=== PATIENT | male | born 1945 | race Caucasian/White ===

== ENCOUNTER 2017-03-03 10:33 | Inpatient (IN) | payer MEDICARE ==
[2017-03-03] MEDS ORDERED: NS 0.9% 1000 ML* 1,000 ML IV SCH (11:15)
--- NOTE | 2017-03-03 11:48 | RAD ---
HISTORY: Altered mental status COMPARISONS: None TECHNIQUE: Multiple contiguous axial CT scans were obtained of the head without intravenous contrast. FINDINGS: HEMORRHAGE/INFARCT: There is no hemorrhage or acute infarct. MASSES/SHIFT: There is no mass or shift. EXTRA-AXIAL SPACES: There are no extra-axial fluid collections. SULCI AND VENTRICLES: The sulci and ventricles are normal in size and position for the patient's stated age. CEREBRUM: There are no focal parenchymal abnormalities. BRAINSTEM: There are no focal parenchymal abnormalities. CEREBELLUM: There are no focal parenchymal abnormalities. VESSELS: The vessels are grossly normal. PARANASAL SINUSES: The paranasal sinuses are clear. ORBITS: The orbits are unremarkable. BONES AND SOFT TISSUE: No bone or soft tissue abnormalities are noted. OTHER: None IMPRESSION: NO ACUTE INTRACRANIAL PATHOLOGY.
--- NOTE | 2017-03-03 11:49 | RAD ---
HISTORY: Altered mental status COMPARISONS: August 12, 2005 VIEWS: 1: frontal portable view of the chest at 11:24 AM FINDINGS: LINES AND TUBES: None. CARDIOMEDIASTINAL SILHOUETTE: The cardiomediastinal silhouette is normal for portable technique. PLEURA: The costophrenic angles are sharp. No pleural abnormalities are noted. LUNG PARENCHYMA: The lungs are clear. ABDOMEN: The upper abdomen is clear. There is no subphrenic gas. BONES AND SOFT TISSUES: The patient is status post anterior cervical fusion IMPRESSION: NO ACTIVE CARDIOPULMONARY DISEASE.
[2017-03-03] MEDS ORDERED: Thiamine IV 100 MG, Folic Acid IV* 1 MG, Multiple Vitamin IV ADULT* 10 ML in NS 0.9% 10... IV ONE (12:15)
[2017-03-03 12:19] LABS: Comments Flag Yes; Hematocrit 36 % (42-52); Hemoglobin 12.3 g/dl (14.0-18.0); Mean Corpuscular HGB Conc 35 g/dl (31-36); Mean Corpuscular Hemoglobin 37 pg (27-31); Mean Platelet Volume 9 um3 (7.4-10.4); Red Blood Count 3.34 10^6/ul (4.0-5.4); Red Cell Distribution Width 21 % (10.5-15); White Blood Count 8.2 10^3/ul (3.5-10.8)
[2017-03-03 12:20] LABS: Add Diff/Slide Review? Slide Review Added
[2017-03-03 12:21] LABS: Urine Bilirubin 2+ (Negative); Urine Glucose 1+(50 mg/dL) (Negative); Urine Nitrite Negative (Negative)
[2017-03-03 12:33] LABS: ALT 56 U/L (7-52); AST 183 U/L (13-39); Albumin 2.2 g/dL (3.2-5.2); Alkaline Phosphatase 141 U/L (34-104); Anion Gap 14 mmol/L (2-11); Blood Urea Nitrogen 16 mg/dL (6-24); C Reactive Protein 13.62 mg/L (< 5.00); CO2 Carbon Dioxide 17 mmol/L (22-32); Calcium 7.9 mg/dL (8.6-10.3); Chloride 104 mmol/L (101-111); Creatine Kinase 550 U/L (10-223); EGFR African American 61.6 (>60); EGFR Non-African American 47.9 (>60); Globulin 3.5 g/dL (2-4); Glucose 66 mg/dL (70-100); Lipase 90 U/L (11.0-82.0); Potassium 2.8 mmol/L (3.5-5.0); Sodium 135 mmol/L (133-145); Total Protein 5.7 g/dL (6.4-8.9)
[2017-03-03 12:40] LABS: Add Path Review? YES; Target Cells 2+
[2017-03-03 12:49] LABS: Acetaminophen < 15 mcg/mL; Alcohol < 10 mg/dL (<10); Salicylate < 2.50 mg/dL (<30)
[2017-03-03 12:52] LABS: Troponin I 0.07 ng/mL (<0.04)
[2017-03-03 13:05] LABS: TSH (Thyroid Stimulating Horm) 1.12 mcIU/mL (0.34-5.60)
[2017-03-03 13:09] LABS: Mean Corpuscular Volume 106 fL (80-94)
[2017-03-03] MEDS ORDERED: Thiamine IV* 100 MG, Folic Acid IV* 1 MG, Multiple Vitamin IV ADULT* 10 ML in NS 0.9% 1... IV ONE (13:32)
[2017-03-03] MEDS ORDERED: MULTIPLE VITAMIN IV ONE ×5 (13:38)
[2017-03-03] MEDS ORDERED: [UNRECOGNIZED DRUG - OTHER] IV ONE ×5 (13:38)
[2017-03-03] MEDS ORDERED: THIAMINE IV ONE ×5 (13:38)
[2017-03-03] MEDS ORDERED: FOLIC ACID IV ONE ×5 (13:38)
[2017-03-03 13:56] LABS: Benzodiazepine Urine Screen None Detected (None Detect)
[2017-03-03] MEDS ORDERED: cefTRIAXone VIAL(*) 1,000 MG in NS 0.9% 50 ML* 50 ML IVPB SCH (14:00)
[2017-03-03 14:04] LABS: PCO2 Arterial 22 mmHg (35-45)
[2017-03-03 14:20] LABS: Magnesium 1.7 mg/dL (1.9-2.7)
--- NOTE | 2017-03-03 14:23 | HP ---
H&P (Free Text) History and Physical: Admission - Critical Care HPI: 71y M pmhx of PUD, Alcohol abuse, History of Cirrhosis as per family; comes in to ER for 1 days of lethargy, according to family it has been more than a day he may be more confused. Today less responsive. They noticed more yellowing of skin for weeks now. They deny any fever/chills/cough/chest pain/ shortness of breath. No abd distension. No sick contacts. They say he stopped drinking weeks back when he didnt feel right anymore. They did not notice any diarrhea/dark stools/blood in stools. Appetite was okay as per them days back. In ER, he was arousable to tactile stimuli only, holding his airway, on NC. BP 140-150s, HR 80s. Given IVF bolus by EMS. Family at bedside giving history. ROS: unobtainable due to mental status PMHx: h/o duodenal ulcer with GI bleed in 2001, Gout, Cirrhosis, ?alcohol abuse PSHx: appendectomy, neck surgery 2005, tonsillectomy Family History: unknown Social History: Alcohol- active, stopped weeks back; Smoking former smoker,; Drug use- deny by family. Allergies: Allergies Allergy/AdvReac Type Severity Reaction Status Date / Time Penicillins Allergy Unknown Verified 07/16/14 19:13 Reaction Details Home Medications: Allopurinol TAB* [Zyloprim 100 MG TAB*] 100 mg PO DAILY 11/26/13 [History Confirmed 03/03/17] Pantoprazole TAB (NF) [Protonix TAB (NF)] 40 mg PO DAILY 11/26/13 [History Confirmed 03/03/17] Multiple Vitamins W/ Minerals [Preservision Areds 2 + Mu] 1 cap PO DAILY [History Confirmed 03/03/17] Tele: NSR Vitals: Vital Signs Temp 97.5 F 03/03/17 14:00 Pulse 103 03/03/17 14:00 Resp 18 03/03/17 14:00 BP 167/61 03/03/17 13:30 Pulse Ox 97 03/03/17 14:00 O2/Vent: NC 2-3 L, sat 100% Infusions: NS Current Medications: Sodium Chloride (Ns 0.9% 1000 Ml*) 1,000 mls @ 150 mls/hr IV PER RATE ELSA Thiamine HCl 100 mg/ Folic Acid 1 mg/ Multivitamins 10 ml / Potassium Chloride 60 meq/Sodium Chloride 1,041.2 mls @ 100 mls/hr IV ONCE ONE Stop: 03/03/17 23:56 Sodium Chloride (Ns 0.9% 1000 Ml*) 1,000 mls @ 100 mls/hr IV PER RATE ELSA Aztreonam 1 gm/ Sodium (Chloride) 50 mls @ 200 mls/hr IVPB ONCE ONE Stop: 03/03/17 14:39 Aztreonam 0.5 gm/ Sodium (Chloride) 50 mls @ 200 mls/hr IVPB Q12H ELSA Vancomycin HCl 1,000 mg/ (Sodium Chloride) 250 mls @ 166.667 mls/hr IVPB ONCE ONE Stop: 03/03/17 15:58 Lactulose (Lactulose*) 30 ml NG TUBE Q6H ELSA Pantoprazole Sodium (Protonix Iv*) 40 mg IV DAILY ELSA Phytonadione (Vitamin K Oral Solution*) 10 mg PO DAILY ELSA Stop: 03/05/17 09:01 Rifaximin (Xifaxan*) 550 mg PO BID ELSA Physical Exam: General: unarousable, not much response to tactile/verbal/painful stimuli Head: normocephalic, atraumatic HEENT: no pallor, ++ icterus, dry mucous membranes Neck: soft, supple, no jvd, no stridor CVS: normal rate, normal rhythm, no murmur Resp: bilateral air entry, no rhales, no wheeze, no rhonchi, no acc muscle use Abdomen: soft, minimal tenderness on deep palpation, nondistended, bowel sounds present Ext: pulses+, warm, no edema Skin: intact, no breakdown, no dryness Neuro: not responsive to painful/tactile/verbal stimuli, pupils bilaterall reactive to light, spontaneous repsirations, able to resist eye opening. Labs: Laboratory Results - last 24 hr 03/03/17 03/03/17 03/03/17 11:42 11:54 11:54 WBC RBC Hgb Hct MCV MCH MCHC RDW Plt Count MPV Neut % (Auto) Lymph % (Auto) Routt % (Auto) Eos % (Auto) Baso % (Auto) Absolute Neuts (auto) Absolute Lymphs (auto) Absolute Monos (auto) Absolute Eos (auto) Absolute Basos (auto) Absolute Nucleated RBC Nucleated RBC % Normal RBC Morphology Target Cells INR (Anticoag Therapy) 4.54 H APTT 84.3 H Fibrinogen 79 L D-Dimer, Quantitative 569 H ABG pH ABG pCO2 ABG pO2 ABG HCO3 ABG O2 Saturation ABG Base Excess Sodium 135 Potassium 2.8 L Chloride 104 Carbon Dioxide 17 L Anion Gap 14 H BUN 16 Creatinine 1.46 H Est GFR ( Amer) 61.6 Est GFR (Non-Af Amer) 47.9 BUN/Creatinine Ratio 11.0 Glucose 66 L Lactic Acid Calcium 7.9 L Magnesium 1.7 L Total Bilirubin 25.70 H* AST 183 H ALT 56 H Alkaline Phosphatase 141 H Ammonia Total Creatine Kinase 550 H CK-MB (CK-2) 9.2 H Troponin I 0.07 H* C-Reactive Protein 13.62 H B-Natriuretic Peptide Total Protein 5.7 L Albumin 2.2 L Globulin 3.5 Albumin/Globulin Ratio 0.6 L Lipase 90 H TSH 1.12 Urine Color Minal Urine Appearance Cloudy Urine pH 6.0 Ur Specific Caspian 1.013 Urine Protein Negative Urine Ketones Trace H Urine Blood Negative Urine Nitrate Negative Urine Bilirubin 2+ Urine Urobilinogen Positive H Ur Leukocyte Esterase Negative Urine Glucose 1+(50 mg/dl) H Urine Ascorbic Acid * H Salicylates < 2.50 Urine Opiates Screen Acetaminophen < 15 Ur Barbiturates Screen Ur Phencyclidine Scrn Ur Amphetamines Screen U Benzodiazepines Scrn Urine Cocaine Screen U Cannabinoids Screen Serum Alcohol < 10 03/03/17 03/03/17 03/03/17 11:54 11:54 11:54 WBC 8.2 RBC 3.34 L Hgb 12.3 L Hct 36 L MCV 106 H MCH 37 H MCHC 35 RDW 21 H Plt Count 57 L MPV 9 Neut % (Auto) 74.4 Lymph % (Auto) 9.2 L Routt % (Auto) 15.8 H Eos % (Auto) 0.4 Baso % (Auto) 0.2 Absolute Neuts (auto) 6.1 Absolute Lymphs (auto) 0.8 L Absolute Monos (auto) 1.3 H Absolute Eos (auto) 0 Absolute Basos (auto) 0 Absolute Nucleated RBC 0.01 Nucleated RBC % 0.1 Normal RBC Morphology Not Reportable Target Cells 2+ INR (Anticoag Therapy) APTT Fibrinogen D-Dimer, Quantitative ABG pH ABG pCO2 ABG pO2 ABG HCO3 ABG O2 Saturation ABG Base Excess Sodium Potassium Chloride Carbon Dioxide Anion Gap BUN Creatinine Est GFR ( Amer) Est GFR (Non-Af Amer) BUN/Creatinine Ratio Glucose Lactic Acid 4.9 H* Calcium Magnesium Total Bilirubin AST ALT Alkaline Phosphatase Ammonia Total Creatine Kinase CK-MB (CK-2) Troponin I C-Reactive Protein B-Natriuretic Peptide 86 Total Protein Albumin Globulin Albumin/Globulin Ratio Lipase TSH Urine Color Urine Appearance Urine pH Ur Specific Caspian Urine Protein Urine Ketones Urine Blood Urine Nitrate Urine Bilirubin Urine Urobilinogen Ur Leukocyte Esterase Urine Glucose Urine Ascorbic Acid Salicylates Urine Opiates Screen Acetaminophen Ur Barbiturates Screen Ur Phencyclidine Scrn Ur Amphetamines Screen U Benzodiazepines Scrn Urine Cocaine Screen U Cannabinoids Screen Serum Alcohol 03/03/17 03/03/17 03/03/17 12:54 13:02 13:50 WBC RBC Hgb Hct MCV MCH MCHC RDW Plt Count MPV Neut % (Auto) Lymph % (Auto) Routt % (Auto) Eos % (Auto) Baso % (Auto) Absolute Neuts (auto) Absolute Lymphs (auto) Absolute Monos (auto) Absolute Eos (auto) Absolute Basos (auto) Absolute Nucleated RBC Nucleated RBC % Normal RBC Morphology Target Cells INR (Anticoag Therapy) APTT Fibrinogen D-Dimer, Quantitative ABG pH 7.53 H ABG pCO2 22 L ABG pO2 102 H ABG HCO3 22.8 ABG O2 Saturation 99.8 H ABG Base Excess -2.7 L Sodium Potassium Chloride Carbon Dioxide Anion Gap BUN Creatinine Est GFR ( Amer) Est GFR (Non-Af Amer) BUN/Creatinine Ratio Glucose Lactic Acid Calcium Magnesium Total Bilirubin AST ALT Alkaline Phosphatase Ammonia 172 H Total Creatine Kinase CK-MB (CK-2) Troponin I C-Reactive Protein B-Natriuretic Peptide Total Protein Albumin Globulin Albumin/Globulin Ratio Lipase TSH Urine Color Urine Appearance Urine pH Ur Specific Caspian Urine Protein Urine Ketones Urine Blood Urine Nitrate Urine Bilirubin Urine Urobilinogen Ur Leukocyte Esterase Urine Glucose Urine Ascorbic Acid Salicylates Urine Opiates Screen None detected Acetaminophen Ur Barbiturates Screen None detected Ur Phencyclidine Scrn None detected Ur Amphetamines Screen None detected U Benzodiazepines Scrn None detected Urine Cocaine Screen None detected U Cannabinoids Screen None detected Serum Alcohol Imaging: CT brain no acute findings CXR no acute infiltrate/congestion. Assessment: 71y M pmhx of PUD, Alcohol abuse, History of Cirrhosis as per family ; comes in to ER for 1 days of lethargy, according to family it has been more than a day he may be more confused. Today less responsive. They noticed more yellowing of skin for weeks now. Comes in unresponsive. -Hepatic Encepehalopathy -Acute Decomepensated Cirrhosis -Coagulopathy 2/2 to liver dysfunction -Renal insufficiency -Thrombocytopenia -Lactic Acidosis Plan: Neuro- unresponsive, almost in Coma state. Elevated ammonia level, mild renal insufficiency, elevated bilirubin levels to 25 may all be causing this progressive decline. CT head neg for acute process, no cerebral edema noted. Will start lactulose q6h via ngt and rifaxamin po. Neurochecks q1h. CVS- hemodyn stable. Noted LA elevated. No clear sepsis identified. Has no abd distension, need to eval for ascites and r/o sbp if any. Obtain blood cultures. Empiric aztreonam/vanco. LA likely elevated from poor hepatic clearance, pending r/o of underlying sepsis. Resp- unreponsive but ventilating. ABG obtained, alklalotic. Oxygenation okay for now. Discussed with family that any further decline may require intubation to protect the airway. Obtain end-tidal monitoring q4h for now. Keep HOB elevated 30deg. ID- wbc normal. Though hypothermic. Obtain blood culture. Ct abd now, eval for ascites also. Empiric aztreonam/vanco sbp coverage (pcn allergic). LA elevated by may be sepsis vs hepatic clearance. Cxr clear of infiltrate. GI- acute decompensated cirrhosis. Elvated bili and ammonia may be contributing to encephalopathy. Lactulose and rifaxamine. Empiric abx coverage. Need to r/o infectious etiology but none at this time. Replete K IV now. IVF hydration. Has some renal insufficiency, may be pre-renal, hydrate with NS infusion now. Watch for any developing HRS, if remains oliguric in coming 24 hours, will start albumin infusions 1mg/kg daily. No hypotension at this time. No evidence of GI bleeding. Coagulopathy at INR 4, start Vit K 10mg PO daily, will give IV x1 dose now. Mild bruising noted only. Calculated MELD-Na score 39 givign a mortality risk of 65%. Discussed with family this is a sever state of cirrhosis and decompensation. Evaluate mental status in coming 24 hours. Will have to obtain goals of care. GI eval. Due to elevated MELD score, will discuss with GI about referral to transplant center. Renal- renal insuff, suspect Acute. IV hydration, NS infusion 125cc/hour. Monitor for oliguria and further JAMIE. Cannot rule out HRS yet. Albumin infusion considered tomorrow. Insert ruiz. Urinalysis without clear wbc/bacteria. Panculture. Heme- hg stable. Thrombocytopenia. Plt 57k, no overt bleeding. Cont to monitor for now. Endo- insulin fingertsticks as needed. Musculsk- none Wounds- none Nutrition- NPO for now. DVT prophylaxis: no chem; compression boots GI prophylaxis: protonix iv Central Line: no Arterial Line: no Ruiz Cathetor: no Disposition: ICU for acute decompensated liver cirrhosis and hepatic encephalopathy Code Status: Full code Total Critical Care time is 60 minutes, excluding procedures/teaching Jerry Marie MD Fire Watcher (Electronically Signed)
[2017-03-03] MEDS ORDERED: Aztreonam (*) 1 GM in NS 0.9% 50 ML* 50 ML IVPB ONE (14:25)
[2017-03-03] MEDS ORDERED: Vancomycin(*) 1,000 MG in NS 0.9% 250 ML* 250 ML IVPB ONE (14:29)
--- NOTE | 2017-03-03 14:37 | RAD ---
CLINICAL HISTORY: Cirrhosis, encephalopathy COMPARISON: September 24, 2010 TECHNIQUE: Multiple contiguous axial CT scans were obtained of the abdomen and pelvis, without intravenous contrast enhancement. Coronal and sagittal multiplanar reformations are submitted for review. Oral contrast was not administered. FINDINGS: The study is limited by the lack of intravenous contrast. This limits evaluation of the solid organs and vasculature. LUNG BASES: There are trace bilateral pleural effusions LIVER: The liver is small with a micronodular contour. BILE DUCTS: There is no intrahepatic or extrahepatic biliary dilatation. GALLBLADDER: The gallbladder is incompletely distended. There is gallbladder wall thickening. PANCREAS: The pancreas is normal, without mass or ductal dilatation. SPLEEN: Normal in size and appearance. UPPER GI TRACT: Evaluation of the gastrointestinal tract is limited by incomplete gastric distention. A gastric tube is noted in the stomach. SMALL BOWEL AND MESENTERY: The small bowel is normal in contour, course, and caliber. There is no obstruction or dilatation. COLON: The colon is normal in contour, course, caliber. There is no pericolonic inflammatory change. ADRENALS: Normal bilaterally. KIDNEYS: The kidneys are normal in shape, size, contour, and axis. There is no hydronephrosis or nephrolithiasis. BLADDER: The bladder is collapsed around a Talavera catheter. PELVIC ORGANS: The prostate gland is normal. The seminal vesicles are symmetric. AORTA: There is calcific atherosclerotic disease of the abdominal aorta and its branches, without aneurysmal dilatation IVC: Unremarkable LYMPH NODES: There is no lymphadenopathy by size criteria. ABDOMINAL WALL: There is no evidence for abdominal wall hernia. BONES AND SOFT TISSUES: There are mild diffuse degenerative changes. OTHER: There is a moderate amount of ascites. IMPRESSION: 1. CIRRHOTIC LIVER. 2. ASCITES. 3. TRACE BILATERAL PLEURAL EFFUSIONS. 4. GALLBLADDER WALL EDEMA WHICH MAY BE REACTIVE FROM HEPATIC INFLAMMATION, HYPERPROTEINEMIA, OR MAY REFLECT A PRIMARY INFLAMMATORY OR INFECTIOUS PROCESS OF THE GALLBLADDER. 5. ATHEROSCLEROSIS
--- NOTE | 2017-03-03 14:39 | ED ---
Kathy Cano Alfonso, scribed for Zia Cedillo MD on 03/03/17 at 1058 . Complex/Multi-Sys Presentation - HPI Summary HPI Summary: LEVEL 5 CAVAET DUE TO AMS. This patient is a 71 year old [facility] worse since a few days ago. Per EMS he was last seen ambulatory yesterday. The patient rates the pain 0 /10 in severity. Symptoms alleviated by nothing. EMS reports urinary incontinency. - History Of Current Complaint Time Seen by Provider: 03/03/17 10:42 Hx Obtained From: EMS Hx From Patient Unobtainable Due To: Altered Mental Status Onset/Duration: Gradual Onset, Lasting Days, Still Present Timing: Constant Alleviating Factor(s): nothing Associated Signs And Symptoms: Positive: Other - urinary incontinency. - Allergies/Home Medications Allergies/Adverse Reactions: Allergies Allergy/AdvReac Type Severity Reaction Status Date / Time Penicillins Allergy Unknown Verified 07/16/14 19:13 Reaction Details Home Medications: Home Medications Multiple Vitamins W/ Minerals [Preservision Areds 2 + Mu] 1 cap PO DAILY [History Confirmed 03/03/17] PMH/Surg Hx/FS Hx/Imm Hx Opthamlomology History: Denies: Hx Legally Blind EENT History: Denies: Hx Deafness - Family History Known Family History: Positive: Unknown - LEVEL 5 CAVAET - Social History Alcohol Use: None Substance Use Type: Reports: None Smoking Status (MU): Former Smoker Review of Systems Negative: Fever Positive: incontinence Neurological: Other - AMS All Other Systems Reviewed And Are Negative: No Physical Exam - Summary Physical Exam Summary: General: well-appearing, no pain distress Skin: warm, jaundice, dry Head: normal Eyes: EOMI, CHIQUI, Sclera icterus ENT: normal Neck: supple, nontender Respiratory: CTA, breath sounds present Cardiovascular: RRR Abdomen: soft, nontender Bowel: present Musculoskeletal: normal, strength/ROM intact Neurological: sensory/motor intact, See GCS Psychological: affect/mood appropriate Triage Information Reviewed: Yes Vital Signs On Initial Exam: Initial Vitals Temp Pulse Resp BP Pulse Ox 96.0 F 102 19 185/59 100 03/03/17 10:50 03/03/17 10:50 03/03/17 10:50 03/03/17 10:50 03/03/17 10:50 Vital Signs Reviewed: Yes Completion Of Physical Exam Limited Due To: Level 5 - [place] Coma Scale Best Eye Response: 2 - To Pain Best Motor Response: 4 - Withdraws Best Verbal Response: 4 - Confused Glascow Coma Scale Comments: 02/06 Diagnostics - Vital Signs Vital Signs Temp Pulse Resp BP Pulse Ox 03/03/17 13:15 97.2 F 87 18 99 03/03/17 13:00 97.2 F 88 17 99 03/03/17 12:45 97.0 F 80 14 99 03/03/17 12:30 96.8 F 87 16 158/53 100 03/03/17 12:15 96.8 F 70 13 100 03/03/17 12:00 96.6 F 76 13 154/50 100 03/03/17 11:45 96.4 F 77 13 100 03/03/17 11:37 157/99 03/03/17 11:36 96.3 F 89 15 100 03/03/17 11:30 96.1 F 86 16 134/106 100 03/03/17 11:24 142/80 03/03/17 11:15 109 18 100 03/03/17 11:00 110 17 185/59 100 03/03/17 10:50 96.0 F 102 19 185/59 100 - Laboratory Lab Results: Lab Results 03/03/17 03/03/17 03/03/17 Range/Units 11:42 11:54 11:54 WBC (3.5-10.8) 10^3/ul RBC (4.0-5.4) 10^6/ul Hgb (14.0-18.0) g/dl Hct (42-52) % MCV (80-94) fL MCH (27-31) pg MCHC (31-36) g/dl RDW (10.5-15) % Plt Count (150-450) 10^3/ul MPV (7.4-10.4) um3 Neut % (Auto) (38-83) % Lymph % (Auto) (25-47) % [place] % (Auto) (1-9) % Eos % (Auto) (0-6) % Baso % (Auto) (0-2) % Absolute Neuts (auto) (1.5-7.7) 10^3/ul Absolute Lymphs (auto) (1.0-4.8) 10^3/ul Absolute Monos (auto) (0-0.8) 10^3/ul Absolute Eos (auto) (0-0.6) 10^3/ul Absolute Basos (auto) (0-0.2) 10^3/ul Absolute Nucleated RBC 10^3/ul Nucleated RBC % Normal RBC Morphology Target Cells Hem Pathologist Commnt INR (Anticoag Therapy) 4.54 H (0.89-1.11) APTT 84.3 H (26.0-36.3) seconds Fibrinogen 79 L (110.8-404.3) mg/dL D-Dimer, Quantitative 569 H (Less Than 230) ng/mL Sodium 135 (133-145) mmol/L Potassium 2.8 L (3.5-5.0) mmol/L Chloride 104 (101-111) mmol/L Carbon Dioxide 17 L (22-32) mmol/L Anion Gap 14 H (2-11) mmol/L BUN 16 (6-24) mg/dL Creatinine 1.46 H (0.67-1.17) mg/dL Est GFR ( Amer) 61.6 (>60) Est GFR (Non-Af Amer) 47.9 (>60) BUN/Creatinine Ratio 11.0 (8-20) Glucose 66 L (70-100) mg/dL Lactic Acid (0.5-2.0) mmol/L Calcium 7.9 L (8.6-10.3) mg/dL Magnesium 1.7 L (1.9-2.7) mg/dL Total Bilirubin 25.70 H* (0.2-1.0) mg/dL AST 183 H (13-39) U/L ALT 56 H (7-52) U/L Alkaline Phosphatase 141 H (34-104) U/L Ammonia (16-53) mol/L Total Creatine Kinase 550 H (10-223) U/L CK-MB (CK-2) 9.2 H (0.6-6.3) ng/mL Troponin I 0.07 H* (<0.04) ng/mL C-Reactive Protein 13.62 H (< 5.00) mg/L B-Natriuretic Peptide ( - 100) pg/mL Total Protein 5.7 L (6.4-8.9) g/dL Albumin 2.2 L (3.2-5.2) g/dL Globulin 3.5 (2-4) g/dL Albumin/Globulin Ratio 0.6 L (1-3) Lipase 90 H (11.0-82.0) U/L TSH 1.12 (0.34-5.60) mcIU/mL Urine Color Minal Urine Appearance Cloudy Urine pH 6.0 (5-9) Ur Specific [place] 1.013 (1.010-1.030) Urine Protein Negative (Negative) Urine Ketones Trace H (Negative) Urine Blood Negative (Negative) Urine Nitrate Negative (Negative) Urine Bilirubin 2+ (Negative) Urine Urobilinogen Positive H (Negative) Ur Leukocyte Esterase Negative (Negative) Urine Glucose 1+(50 mg/dl) H (Negative) Urine Ascorbic Acid * H (Negative) Salicylates < 2.50 (<30) mg/dL Urine Opiates Screen (None Detect) Acetaminophen < 15 mcg/mL Ur Barbiturates Screen (None Detect) Ur Phencyclidine Scrn (None Detect) Ur Amphetamines Screen (None Detect) U Benzodiazepines Scrn (None Detect) Urine Cocaine Screen (None Detect) U Cannabinoids Screen (None Detect) Serum Alcohol < 10 (<10) mg/dL 03/03/17 03/03/17 03/03/17 Range/Units 11:54 11:54 11:54 WBC 8.2 (3.5-10.8) 10^3/ul RBC 3.34 L (4.0-5.4) 10^6/ul Hgb 12.3 L (14.0-18.0) g/dl Hct 36 L (42-52) % MCV 106 H (80-94) fL MCH 37 H (27-31) pg MCHC 35 (31-36) g/dl RDW 21 H (10.5-15) % Plt Count 57 L (150-450) 10^3/ul MPV 9 (7.4-10.4) um3 Neut % (Auto) 74.4 (38-83) % Lymph % (Auto) 9.2 L (25-47) % [place] % (Auto) 15.8 H (1-9) % Eos % (Auto) 0.4 (0-6) % Baso % (Auto) 0.2 (0-2) % Absolute Neuts (auto) 6.1 (1.5-7.7) 10^3/ul Absolute Lymphs (auto) 0.8 L (1.0-4.8) 10^3/ul Absolute Monos (auto) 1.3 H (0-0.8) 10^3/ul Absolute Eos (auto) 0 (0-0.6) 10^3/ul Absolute Basos (auto) 0 (0-0.2) 10^3/ul Absolute Nucleated RBC 0.01 10^3/ul Nucleated RBC % 0.1 Normal RBC Morphology Not Reportable Target Cells 2+ Hem Pathologist Commnt Pending INR (Anticoag Therapy) (0.89-1.11) APTT (26.0-36.3) seconds Fibrinogen (110.8-404.3) mg/dL D-Dimer, Quantitative (Less Than 230) ng/mL Sodium (133-145) mmol/L Potassium (3.5-5.0) mmol/L Chloride (101-111) mmol/L Carbon Dioxide (22-32) mmol/L Anion Gap (2-11) mmol/L BUN (6-24) mg/dL Creatinine (0.67-1.17) mg/dL Est GFR ( Amer) (>60) Est GFR (Non-Af Amer) (>60) BUN/Creatinine Ratio (8-20) Glucose (70-100) mg/dL Lactic Acid 4.9 H* (0.5-2.0) mmol/L Calcium (8.6-10.3) mg/dL Magnesium (1.9-2.7) mg/dL Total Bilirubin (0.2-1.0) mg/dL AST (13-39) U/L ALT (7-52) U/L Alkaline Phosphatase (34-104) U/L Ammonia (16-53) mol/L Total Creatine Kinase (10-223) U/L CK-MB (CK-2) (0.6-6.3) ng/mL Troponin I (<0.04) ng/mL C-Reactive Protein (< 5.00) mg/L B-Natriuretic Peptide 86 ( - 100) pg/mL Total Protein (6.4-8.9) g/dL Albumin (3.2-5.2) g/dL Globulin (2-4) g/dL Albumin/Globulin Ratio (1-3) Lipase (11.0-82.0) U/L TSH (0.34-5.60) mcIU/mL Urine Color Urine Appearance Urine pH (5-9) Ur Specific [place] (1.010-1.030) Urine Protein (Negative) Urine Ketones (Negative) Urine Blood (Negative) Urine Nitrate (Negative) Urine Bilirubin (Negative) Urine Urobilinogen (Negative) Ur Leukocyte Esterase (Negative) Urine Glucose (Negative) Urine Ascorbic Acid (Negative) Salicylates (<30) mg/dL Urine Opiates Screen (None Detect) Acetaminophen mcg/mL Ur Barbiturates Screen (None Detect) Ur Phencyclidine Scrn (None Detect) Ur Amphetamines Screen (None Detect) U Benzodiazepines Scrn (None Detect) Urine Cocaine Screen (None Detect) U Cannabinoids Screen (None Detect) Serum Alcohol (<10) mg/dL 03/03/17 03/03/17 Range/Units 12:54 13:02 WBC (3.5-10.8) 10^3/ul RBC (4.0-5.4) 10^6/ul Hgb (14.0-18.0) g/dl Hct (42-52) % MCV (80-94) fL MCH (27-31) pg MCHC (31-36) g/dl RDW (10.5-15) % Plt Count (150-450) 10^3/ul MPV (7.4-10.4) um3 Neut % (Auto) (38-83) % Lymph % (Auto) (25-47) % [place] % (Auto) (1-9) % Eos % (Auto) (0-6) % Baso % (Auto) (0-2) % Absolute Neuts (auto) (1.5-7.7) 10^3/ul Absolute Lymphs (auto) (1.0-4.8) 10^3/ul Absolute Monos (auto) (0-0.8) 10^3/ul Absolute Eos (auto) (0-0.6) 10^3/ul Absolute Basos (auto) (0-0.2) 10^3/ul Absolute Nucleated RBC 10^3/ul Nucleated RBC % Normal RBC Morphology Target Cells Hem Pathologist Commnt INR (Anticoag Therapy) (0.89-1.11) APTT (26.0-36.3) seconds Fibrinogen (110.8-404.3) mg/dL D-Dimer, Quantitative (Less Than 230) ng/mL Sodium (133-145) mmol/L Potassium (3.5-5.0) mmol/L Chloride (101-111) mmol/L Carbon Dioxide (22-32) mmol/L Anion Gap (2-11) mmol/L BUN (6-24) mg/dL Creatinine (0.67-1.17) mg/dL Est GFR ( Amer) (>60) Est GFR (Non-Af Amer) (>60) BUN/Creatinine Ratio (8-20) Glucose (70-100) mg/dL Lactic Acid (0.5-2.0) mmol/L Calcium (8.6-10.3) mg/dL Magnesium (1.9-2.7) mg/dL Total Bilirubin (0.2-1.0) mg/dL AST (13-39) U/L ALT (7-52) U/L Alkaline Phosphatase (34-104) U/L Ammonia 172 H (16-53) mol/L Total Creatine Kinase (10-223) U/L CK-MB (CK-2) (0.6-6.3) ng/mL Troponin I (<0.04) ng/mL C-Reactive Protein (< 5.00) mg/L B-Natriuretic Peptide ( - 100) pg/mL Total Protein (6.4-8.9) g/dL Albumin (3.2-5.2) g/dL Globulin (2-4) g/dL Albumin/Globulin Ratio (1-3) Lipase (11.0-82.0) U/L TSH (0.34-5.60) mcIU/mL Urine Color Urine Appearance Urine pH (5-9) Ur Specific [place] (1.010-1.030) Urine Protein (Negative) Urine Ketones (Negative) Urine Blood (Negative) Urine Nitrate (Negative) Urine Bilirubin (Negative) Urine Urobilinogen (Negative) Ur Leukocyte Esterase (Negative) Urine Glucose (Negative) Urine Ascorbic Acid (Negative) Salicylates (<30) mg/dL Urine Opiates Screen None detected (None Detect) Acetaminophen mcg/mL Ur Barbiturates Screen None detected (None Detect) Ur Phencyclidine Scrn None detected (None Detect) Ur Amphetamines Screen None detected (None Detect) U Benzodiazepines Scrn None detected (None Detect) Urine Cocaine Screen None detected (None Detect) U Cannabinoids Screen None detected (None Detect) Serum Alcohol (<10) mg/dL Result Diagrams: 03/03/17 11:54 03/03/17 11:54 Lab Statement: Any lab studies that have been ordered have been reviewed, and results considered in the medical decision making process. - Radiology CXR Radiology Interpretation Completed By: Radiologist - NO ACTIVE CARDIOPULMONARY DISEASE. ED physician has reviewed this radiology report and agrees. - CT Brain CT Interpretation Completed By: Radiologist - NO ACUTE INTRACRANIAL PATHOLOGY. ED physician has reviewed this radiology report and agrees. - EKG 1120 Cardiac Rate: NL EKG Rhythm: Sinus Rhythm EKG Interpretation: BPM 87. baseline artifact that could possibly be atrial flutter Re-Evaluation - Re-Evaluation First Eval Re-Evaluation Time: 12:10 Comment: Spoke with family. They report confusion (putting on two watches), jaundice, dark urine, and recent cessation from ETOH abuse. Complex Multi-Symp Course/Dx Course Of Treatment: DISCUSSED WITH ICU, DR MARIE, WHO SAW PATIENT IN THE ED. ADMIT ICU CRITICAL. - Diagnoses Provider Diagnoses: Hepatic encephalopathy, Altered mental state - Physician Notifications Discussed Care Of Patient With: lana Time Discussed With Above Provider: 11:34 Instructed by Provider To: Other - Consulted Dr. Marie (ICU) at 1134 who agrees to admit. - Critical Care Time Critical Care Time: 30-74 min Discharge - Discharge Plan Condition: Critical Disposition: ADMITTED TO [facility] documentation as recorded by the Kathy baker Alfonso accurately reflects the service I personally performed and the decisions made by me, Zia Cedillo MD.
[2017-03-03] MEDS ORDERED: Multiple Vitamin IV ADULT* 10 ML, Thiamine IV* 100 MG, Folic Acid IV* 1 MG in NS 0.9% 1... IVPB ONE (15:00)
[2017-03-03] MEDS: NS 0.9% 1000 ML* 1,000 ML IV SCH ×2 (15:02→19:41)
[2017-03-03] MEDS: Phytonadione Oral Solution* 5 MG/25 ML UDC PO SCH (15:12)
[2017-03-03] MEDS: KCL 20 MEQ/100 ML IVPREMIX* 20 MEQ/100 ML BAG IV SCH ×3 (15:12→19:15)
[2017-03-03] MEDS ORDERED: Albuterol 2.5 MG/3 ML NEB.SOL* (0.083%) INH PRN (15:25)
[2017-03-03] MEDS ORDERED: Phytonadione INJ (Adult)* 5 MG in NS 0.9% 50 ML* 50 ML IV ONE (20:18)
[2017-03-03] MEDS: RiFAXimin* 550 MG TAB PO SCH (20:45)
[2017-03-03] MEDS ORDERED: fentaNYL* 50 MCG/ML 2 ML VIAL (100 MCG VIAL) IV ONE (23:00)
[2017-03-03] MEDS: Aztreonam (*) 0.5 GM in NS 0.9% 50 ML* 50 ML IVPB SCH (23:43)
[2017-03-04] MEDS: fentaNYL* 50 MCG/ML 2 ML VIAL (100 MCG VIAL) IV PRN ×2 (04:00→06:00)
[2017-03-04] MEDS: NS 0.9% 1000 ML* 1,000 ML IV SCH ×2 (05:39→15:42)
[2017-03-04] MEDS ORDERED: Vancomycin Random Level* NOTE FOLLOW UP ONE (06:00)
[2017-03-04 06:22] LABS: Albumin 2.3 g/dL (3.2-5.2); BUN/Creatinine Ratio 11.2 (8-20); Calcium 7.6 mg/dL (8.6-10.3); EGFR African American 58.8 (>60); EGFR Non-African American 45.7 (>60); Globulin 3.6 g/dL (2-4); Phosphorus 2.2 mg/dL (2.5-5.0); Total Protein 5.9 g/dL (6.4-8.9)
[2017-03-04 06:28] LABS: Hematocrit 37 % (42-52); Hemoglobin 12.9 g/dl (14.0-18.0); Mean Corpuscular HGB Conc 35 g/dl (31-36); Mean Corpuscular Hemoglobin 37 pg (27-31); Mean Corpuscular Volume 104 fL (80-94); Red Blood Count 3.52 10^6/ul (4.0-5.4); Red Cell Distribution Width 20 % (10.5-15); White Blood Count 9.3 10^3/ul (3.5-10.8)
[2017-03-04 06:29] LABS: Add Diff/Slide Review? Slide Review Added; Comments Flag Yes
[2017-03-04 06:43] LABS: Mean Platelet Volume 9 um3 (7.4-10.4)
[2017-03-04 06:44] LABS: Vancomycin Random 8.3 mcg/mL
[2017-03-04 06:45] LABS: Total Bilirubin 26.7 mg/dL (0.2-1.0)
[2017-03-04 07:58] LABS: Magnesium 1.8 mg/dL (1.9-2.7)
[2017-03-04] MEDS: Pantoprazole IV* 40 MG IV SCH (08:22)
[2017-03-04] MEDS: RiFAXimin* 550 MG TAB PO SCH ×2 (08:23→19:30)
[2017-03-04] MEDS: Phytonadione Oral Solution* 5 MG/25 ML UDC PO SCH (08:23)
[2017-03-04] MEDS: Aztreonam (*) 0.5 GM in NS 0.9% 50 ML* 50 ML IVPB SCH (12:11)
--- NOTE | 2017-03-04 17:46 | PN ---
Progress Note - Progress Note Date of Service: 03/04/17 Note: CRITICAL CARE MEDICINE Date: 03/04/17 Time: 1500 SUBJECTIVE: Patient seen and examined. PHYSICAL EXAM: ill, jaundice Vital Signs: Reviewed. 2L O2. Hr 110, rr 20, etco2 30-40s Neurologic: stupor HEENT: pupils equal. mm dry Sclera icteric. Trachea midline. Cardiovascular: S1 S2, tachy but no m nor rub Respiratory: reg phases, snoring occasionally, mild rhonchi occasional cough Abdomen: Soft, nt. +fluid No r/g/r. Extremities: Warm. +edema LABS: Reviewed. IMAGING: Reviewed. MEDICATIONS: Reviewed. 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 MELD very high. Encepahlopathy worsening. DIfficult to achieve clearance of ammonia with jamie as well. At risk for aspiration and airway compromise, she is aware of this as we spoke frankly about it; understands we will continue to avoid intubation until it becomes acutely apparent as it most likely will in time but would not truly benefit him now given the overall prognosis. Remains on lactulose and rifaximin but will take time to clear. JAMIE likely to continue to falter but support with IVF for now and look to dc ultimately. Nutrition will continue to lag. Has abx for potential sbp. receiving vit k. As discussed will try to support in time. She understands that intubation may become and ominious sign and would likely agree to dnr at that time. Remains hopeful but realistic. Supportive and preventative care as ordered. SUP: ppi VTE prophylaxis: coagulopathic Talavera catheter given critical illness, monitoring needs for accurate assessment of JAMIE and KDIGO criteria for critically ill patients and to avoid potential harms of urinary retention, skin breakdown/ulcers. Disposition: ICU Code Status: Full Critical Care Time: 35min Thien Macias DO
--- NOTE | 2017-03-05 00:11 | CONS ---
GASTROENTEROLOGY CONSULTATION: DATE OF CONSULT: March 04, 2017 HOSPITAL PROVIDER: Jerry Marie MD REASON FOR CONSULT: Hepatic encephalopathy. HISTORY OF PRESENT ILLNESS: Mr. Alcala is a 71-year-old male with a past medical history of liver cirrhosis and alcohol abuse, who presented to [facility] Emergency Room due to altered mental status per family, much of the medical history has been obtained from the medical chart and family. Over the last few days, the patient's mental status has been worsening and the patient had been increasingly more jaundiced. Upon arrival to the emergency room, the patient was obtunded, however, breathing on his own. Lab work revealed an ammonia level of 161 and hyperbilirubinemia of 25.70. The patient was also noted to have lactic acidosis with a lactic acid of 4.9, multiple electrolyte abnormalities and acute kidney injury. The patient was admitted to the intensive care unit for close monitoring and acute decompensation of the patient's liver cirrhosis. He was noted to have an INR of 4.50 on admission. While in the ICU, the patient was administered 10 mg of vitamin K to reverse the patient's INR and an NG tube was placed to administer lactulose and Xifaxan. Patient has subsequently had a total of 6 bowel movements as of this morning. He remains obtunded despite administration of medication. He is currently hemodynamically stable. Gastroenterology was consulted for further recommendations. Of note, the patient apparently stopped drinking a few weeks back because he did not "feel right anymore." There is no history of melena, bright red blood per rectum, weight changes, but family did admit to decreased appetite over the last few days. PAST MEDICAL HISTORY: 1. Gastrointestinal bleed secondary to a duodenal ulcer in 2001. 2. Gout. 3. Alcohol abuse. 4. Liver cirrhosis. PAST SURGICAL HISTORY: 1. Tonsillectomy. 2. Neck surgery in 2005. 3. Appendectomy. HOME MEDICATIONS: 1. Allopurinol. 2. Pantoprazole 40 mg daily. 3. Multivitamin. HOSPITAL MEDICATIONS: 1. The patient is currently on albuterol nebs. 2. Aztreonam. 3. Fentanyl prn. 4. Lactulose. 5. Pantoprazole. 6. Rifaximin. 7. Banana bag. ALLERGIES: To PENICILLIN, which is an unknown reaction. FAMILY HISTORY: Unknown. SOCIAL HISTORY: Quit alcohol use a few weeks ago, former smoker, family denies any drug abuse. REVIEW OF SYSTEMS: Fourteen-point scale has been unable to be fully reviewed due to the patient's mental status. Majority of the information has been obtained from the family and medical chart. All pertinent positives and negatives have been noted above in HPI. PHYSICAL EXAM: Vital Signs: Temperature 97.7, heart rate 95, respirations 17, oxygenation 99% on room air, blood pressure 139/75. Generally, the patient is obtunded, responsive to tactile stimuli only, appears jaundiced. HEENT: Icteric sclerae bilaterally. Dry mucous membranes. NG tube in place. Neck is supple. Cardiovascular Exam: Regular rate and rhythm. Pulmonary Exam: Coarse breath sounds throughout. Abdominal Exam: Positive bowel sounds, distended, but soft. No rebound, guarding, or rigidity. Extremities: No clubbing, cyanosis, or edema. Bilateral SCDs are present. Multiple telangiectasias throughout the patient's chest and facial area. Neurological Exam: Unable to be assessed due to the patient's encephalopathy. LABORATORY DATA: WBC is 9.3, hemoglobin 12.9, hematocrit 37, MCV 104, platelets 63. INR 4.3. Fibrinogen 79. PTT 82.1. D-dimer 569. Sodium 138, potassium 3.0, chloride 111, CO2 17, anion gap 10, BUN 17, creatinine 1.52, glucose 90. Lactic acid 4.9 on admission, now it is 1.6. Calcium 7.6, phosphorus 2.2, magnesium 1.8. Bilirubin increased from 25.70 to 26.70; AST 187 ; ALT 62; alkaline phosphatase 168. Ammonia 182. Albumin 2.3, lipase 127. TSH 1.12. Urine drug screen negative. ASSESSMENT AND PLAN: The patient is a 71-year-old male with a history of liver cirrhosis and alcohol abuse, who presented to [facility] Emergency Room with altered mental status and found to be in acute decompensated liver cirrhosis. Gastroenterology was consulted for further recommendations. 1. Acute decompensated liver cirrhosis, complicated by acute encephalopathy, coagulopathy and thrombocytopenia. The patient currently has an NG tube for administration of lactulose and rifaximin to improve the patient's encephalopathy. Currently, the patient remains obtunded despite medications, which is an indication of a poor prognosis. The patient was given vitamin K 10 mg today to reverse the patient's INR. Recommend following INR daily. We will continue to monitor the patient's platelet count, which is likely secondary to the patient's liver disease and transfuse if platelets fall below 20. Of note, the patient has had a liver workup performed back in 2013 revealing a negative hepatitis panel and hemochromatosis panel. Would recommend rechecking hepatitis panel. Unclear if all of patient's tattoos are new or not. The patient unfortunately is not a candidate for liver transplant given his recent history of alcohol abuse, typically transplant centers would like to have patients prove approximately 6 months of sobriety. 2. Elevated liver function tests. The elevations are likely secondary to chronic alcohol abuse and acute decompensation in the patient's liver disease. We will continue to monitor the patient's bilirubin due to elevated MELD score at this time. We would recommend rechecking the hepatitis panel. Start prednisolone 40 mg daily once infectious etiology has been ruled out. 3. Abdominal distention. CT scan was performed in the emergency room revealing a moderate amount of ascites. I would recommend a paracentesis for diagnostic (rule out SBP) and therapeutic purposes along with an albumin infusion. The patient's toxicology panel was negative on admission. He is currently on Aztreonam and Vancomycin. 4. Lactic acidosis. Improved with IV fluid administration. 5. Multiple electrolyte abnormalities. We will continue to monitor and replace accordingly. 6. Acute kidney injury. May be secondary to hypovolemia versus hepatorenal syndrome. We will continue IV hydration and continue to monitor kidney function. May need Nephrology consultation in the near future. Thank you, Dr. Marie, for allowing us to participate in the care of your patient. We will continue to follow the patient very closely as the patient has a poor prognosis. Please do not hesitate to call us with any further questions or concerns. [id number]/[facility] #: [id number] [facility] HOSPITALSiri
[2017-03-05] MEDS: Aztreonam (*) 0.5 GM in NS 0.9% 50 ML* 50 ML IVPB SCH ×3 (00:30→23:54)
[2017-03-05] MEDS: NS 0.9% 1000 ML* 1,000 ML IV SCH (01:19)
[2017-03-05 07:03] LABS: BUN/Creatinine Ratio 10.6 (8-20); Calcium 7.1 mg/dL (8.6-10.3); EGFR Non-African American 35.8 (>60); Globulin 3.4 g/dL (2-4); Phosphorus 4.2 mg/dL (2.5-5.0); Potassium 3.1 mmol/L (3.5-5.0); Total Protein 5.4 g/dL (6.4-8.9)
[2017-03-05 07:18] LABS: Total Bilirubin 25.3 mg/dL (0.2-1.0)
[2017-03-05 08:17] LABS: Hematocrit 35 % (42-52); Hemoglobin 11.8 g/dl (14.0-18.0); Mean Corpuscular HGB Conc 34 g/dl (31-36); Mean Corpuscular Hemoglobin 37 pg (27-31); Red Blood Count 3.24 10^6/ul (4.0-5.4); Red Cell Distribution Width 21 % (10.5-15)
[2017-03-05 08:18] LABS: Add Diff/Slide Review? Slide Review Added; Comments Flag Yes; Mean Corpuscular Volume 107 fL (80-94)
[2017-03-05 08:56] LABS: Macrocytosis 1+; Target Cells 1+
[2017-03-05 08:58] LABS: Mean Platelet Volume 9 um3 (7.4-10.4)
[2017-03-05] MEDS: Pantoprazole IV* 40 MG IV SCH (09:14)
[2017-03-05] MEDS: Phytonadione Oral Solution* 5 MG/25 ML UDC PO SCH (09:14)
[2017-03-05] MEDS: RiFAXimin* 550 MG TAB PO SCH (09:17)
[2017-03-05] MEDS ORDERED: Norepinephrine 16MCG/ML IVPRE* 4,000 MCG/250 ML BAG IV ONE (09:29)
[2017-03-05] MEDS ORDERED: fentaNYL* 50 MCG/ML 5 ML VIAL (250 MCG VIAL) ONE (09:43)
[2017-03-05] MEDS ORDERED: fentaNYL* 50 MCG/ML 2 ML VIAL (100 MCG VIAL) IV SLOW PU ONE (09:56)
[2017-03-05] MEDS ORDERED: Midazolam* 1 MG/ML 2 ML VIAL (2 MG) IV ONE (09:56)
[2017-03-05] MEDS ORDERED: LORazepam INJ* 2 MG/ML 1 ML VIAL IV PUSH PRN (10:14)
[2017-03-05] MEDS ORDERED: fentaNYL* 50 MCG/ML 2 ML VIAL (100 MCG VIAL) IV SLOW PU PRN (10:14)
--- NOTE | 2017-03-05 10:23 | RAD ---
HISTORY: Post intubation COMPARISONS: March 03, 2017 VIEWS: 1: frontal portable view of the chest at 9:55 AM FINDINGS: LINES AND TUBES: An endotracheal tube is noted with the tip overlying the trachea between the clavicles and the kush. 2 gastric tubes are noted, with the tips in the left upper quadrant in a prepyloric position.. CARDIOMEDIASTINAL SILHOUETTE: The cardiomediastinal silhouette is normal for portable technique. PLEURA: The costophrenic angles are sharp. No pleural abnormalities are noted. LUNG PARENCHYMA: There is confluent alveolar opacification of the left lung base. There is linear opacification of the left midlung ABDOMEN: The upper abdomen is clear. There is no subphrenic gas. BONES AND SOFT TISSUES: The patient is status post anterior cervical fusion. IMPRESSION: 1. LINES AND TUBES ABOVE. 2. LEFT BASILAR AND MIDLUNG ATELECTASIS
--- NOTE | 2017-03-05 10:52 | PN ---
Progress Note - Progress Note Date of Service: 03/05/17 Note: CRITICAL CARE MEDICINE PROCEDURE NOTE DATE: 03/05/17 TIME: 930 SERVICE: Critical Care Medicine LOCATION OF PROCEDURE: ICU PROCEDURE: Endotracheal intubation PROCEDURALIST: Dr. Macias Consent obtain: No, procedure performed emergently; was made aware Time out held: Not indicated INDICATION: Acute respiratory failure/coma PROCEDURE: Oxygenation maintained and vitals monitored. Patient in supine position. Pre-medication with fentanyl 100mcg / versed 4mg. Glidescope #3 inserted with Grade 1 view obtained. 8.0 endotracheal tube inserted to 24cm lip. Good chest rise with breath sounds appreciated in bilaterally lung casanova. EtCO2 + color change. OGT placed Portable chest x-ray with ett in good position. Patient otherwise tolerated well. Thien Macias DO
[2017-03-05] MEDS ORDERED: Norepinephrine 16MCG/ML IVPRE* 4,000 MCG/250 ML BAG IV SCH (11:00)
--- NOTE | 2017-03-05 11:01 | PN ---
Progress Note - Progress Note Date of Service: 03/05/17 Note: CRITICAL CARE MEDICINE Date: 03/05/17 Time: 855 SUBJECTIVE: Patient seen and examined. PHYSICAL EXAM: ill, jaundice Vital Signs: Reviewed. 40L O2 now with. Hr 110, rr higher 20s. Neurologic: stupor to coma. not responding to pain. HEENT: ngt. mm dry Sclera icteric. Trachea midline. Cardiovascular: S1 S2, tachy but no m Respiratory: rhonchi Abdomen: Soft, nt. anasarca Extremities: Warm. inc +edema LABS: Reviewed. IMAGING: Reviewed. MEDICATIONS: Reviewed. 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 Needs airway now as we cannot wait any longer with further atelectasis and inability to clear secretions. not available to come in this am, proceeded to intubation. Adjust meds. Supportive care, but outcome remains dismal without foreseeable reversibility. Neurologic: avoid gtt sedation. prns for pain. encephalopathy remains. question degree of cerebral edema potentials. No change in care other then maintain bp/ cpp well post intubation. Cardiovascular: perfusing but msof. may need pressures now. vasc vol holding and interstial overload. no diuretics yet but may need if kidneys can maintain. Respiratory: intubation. vent bundle and support. Gastrointestinal: start tf. meld worsening. supportive care. rx as ordered. Renal/Metabolic: f/u function. ruiz. Infectious Disease: on aztreonam Hematology: coagulopathy not responding to vit k. Hb ok. Endocrine: no role for steroids. Musculoskeletal: skin precautions as at major risk for breakdown Psych/Social: updated yesterday and will re-discuss today. Supportive and preventative care as ordered. SUP: ppi VTE prophylaxis: coagulopathic Ruiz catheter given critical illness, monitoring needs for accurate assessment of JAMIE and KDIGO criteria for critically ill patients and to avoid potential harms of urinary retention, skin breakdown/ulcers. Disposition: ICU Code Status: Full presently Critical Care Time: 35min, excl procedures FChucky Macias DO
[2017-03-05] MEDS: Chlorhexidine MOUTHWASH 0.12%* 15 ML UDC TOPICAL SCH ×4 (11:16→23:54)
--- NOTE | 2017-03-05 12:17 | PN ---
Progress Note - Progress Note Date of Service: 03/05/17 Note: CRITICAL CARE MEDICINE Date: 03/05/17 Time: 1200 updated at bedside. Understanding gravity. Shakira discussed and she will fill out for DNR when her daughter arrives in a little bit. Tenative plan to see how pt does with support over weekend and if no improvement come Tuesday discuss possible withdrawal. Critical Care Time: 10min F. Harry Macias, DO
[2017-03-05] MEDS: RiFAXimin* 550 MG TAB G TUBE SCH (20:02)
[2017-03-06] MEDS: Chlorhexidine MOUTHWASH 0.12%* 15 ML UDC TOPICAL SCH ×5 (02:51→21:03)
[2017-03-06 06:39] LABS: Albumin 2.2 g/dL (3.2-5.2); BUN/Creatinine Ratio 8.5 (8-20); Calcium 7.7 mg/dL (8.6-10.3); EGFR African American 22.1 (>60); EGFR Non-African American 17.2 (>60); Globulin 3.6 g/dL (2-4); Phosphorus 2.6 mg/dL (2.5-5.0); Total Protein 5.8 g/dL (6.4-8.9)
[2017-03-06 06:43] LABS: Comments Flag Yes; Hematocrit 38 % (42-52); Mean Corpuscular HGB Conc 34 g/dl (31-36); Mean Corpuscular Hemoglobin 37 pg (27-31); Mean Corpuscular Volume 107 fL (80-94); Red Blood Count 3.57 10^6/ul (4.0-5.4); Red Cell Distribution Width 21 % (10.5-15); White Blood Count 12.6 10^3/ul (3.5-10.8)
[2017-03-06 06:44] LABS: Add Diff/Slide Review? Slide Review Added
[2017-03-06 07:00] LABS: Potassium 2.6 mmol/L (3.5-5.0); Total Bilirubin 30.3 mg/dL (0.2-1.0)
[2017-03-06] MEDS: KCL 20 MEQ/100 ML IVPREMIX* 20 MEQ/100 ML BAG IV SCH ×3 (07:52→14:38)
[2017-03-06 08:13] LABS: Magnesium 2.4 mg/dL (1.9-2.7)
[2017-03-06] MEDS: Lansoprazole susp Kit 3 MG/ML (30 MG = 10 ML) G TUBE SCH (09:30)
[2017-03-06] MEDS: RiFAXimin* 550 MG TAB G TUBE SCH ×2 (09:31→21:03)
[2017-03-06] MEDS: Multivitamins ADULT w/MIN LIQ* 15 ML UDC PO SCH (09:31)
[2017-03-06] MEDS ORDERED: NS 0.9% 50 ML* 50 ML ONE (11:47)
[2017-03-06] MEDS: Aztreonam (*) 0.5 GM in NS 0.9% 50 ML* 50 ML IVPB SCH (13:21)
--- NOTE | 2017-03-06 13:30 | PN ---
Progress Note - Progress Note Date of Service: 03/06/17 Note: CRITICAL CARE MEDICINE Date: 03/06/17 Time: 1240 SUBJECTIVE: Patient seen and examined. PHYSICAL EXAM: ill, jaundice Vital Signs: Reviewed. intubated. 30%. dec Uout Neurologic: coma. pupils responsive, mild grimace to pain HEENT: ngt. mm dry. Sclera icteric. Trachea midline. ett in place Cardiovascular: S1 S2 distant Respiratory: coarse but clear Abdomen: Soft, anasarca Extremities: Warm. +edema LABS: Reviewed. IMAGING: Reviewed. MEDICATIONS: Reviewed. 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 Anuric renal failure ensing. little left to offer. d/w pts and daughter at bedside. they are trying to gather relatives. Will plan to terminally extubate tomorrow and suport with comfort measures alone. Supportive care for now. Supportive and preventative care as ordered. Disposition: ICU; likely dispo to floor tomorrow with morphine needs Code Status: DNR Critical Care Time: 35min Thien Macias DO
[2017-03-07] MEDS: Chlorhexidine MOUTHWASH 0.12%* 15 ML UDC TOPICAL SCH ×4 (00:05→09:13)
[2017-03-07] MEDS: Aztreonam (*) 0.5 GM in NS 0.9% 50 ML* 50 ML IVPB SCH (00:05)
[2017-03-07] MEDS: Multivitamins ADULT w/MIN LIQ* 15 ML UDC PO SCH (09:13)
[2017-03-07] MEDS: RiFAXimin* 550 MG TAB G TUBE SCH (09:14)
[2017-03-07] MEDS: Lansoprazole susp Kit 3 MG/ML (30 MG = 10 ML) G TUBE SCH (09:31)
[2017-03-07] MEDS ORDERED: Morphine INJ* 4 MG/ML 1 ML CARPUJECT IV PRN (09:34)
[2017-03-07] MEDS ORDERED: Morphine ORAL.SOLN 10 mg* 2 MG/ML UDC 5 ml PO PRN (09:35)
--- NOTE | 2017-03-07 09:42 | PN ---
Progress Note - Progress Note Date of Service: 03/07/17 Note: CRITICAL CARE MEDICINE Date: 03/07/17 Time: 835 SUBJECTIVE: Patient seen and examined. at bedside PHYSICAL EXAM: ill, jaundice Vital Signs: Reviewed. intubated. 30%. dec Uout again. Neurologic: coma. pupils responsive, no grimace to pain but does have some movement HEENT: ogt. mm dry. Sclera icteric. Trachea midline. ett in place Cardiovascular: S1 S2 distant Respiratory: coarse Abdomen: Soft, anasarca Extremities: Warm. +edema LABS: Reviewed. IMAGING: Reviewed. MEDICATIONS: Reviewed. 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 failing all supportive treatments. d/w . will liberate to RA today and re-assess his comfort needs and allow his natural course to take over without O2. Prns. consider morphine gtt if wob high or distress but his comatose state will remain. Supportive care currently. Disposition: terminal extubation. likely to floor as may have some time til demise. Code Status: DNR Critical Care Time: 25min Thien Macias DO
[2017-03-07] MEDS ORDERED: Morphine INJ* 10 MG/ML 1 ML CARPUJECT IV ONE (10:00)
--- NOTE | 2017-03-07 12:22 | DS ---
CRITICAL CARE MEDICINE DISCHARGE SUMMARY ADMISSION DATE: 03/03/2017 ICU ADMISSION DATE: 03/03/2017 ICU DISCHARGE DATE: 03/07/2017 PRIMARY CARE PROVIDER: Jocelynn. REFERRING PHYSICIAN: Nguyen. DIAGNOSIS: 1. Multisystem organ failure. 2. Fulminate liver failure. 3. Alcoholic cirrhosis. 4. Coma secondary to hepatic encephalopathy. 5. Acute respiratory failure, with component of hypoxia. 6. Acute renal failure with component of acute tubular necrosis and hepatorenal syndrome. 7. Coagulopathy. 8. Malnutrition, moderate degree. MEDICATIONS AT DISCHARGE: None. ALLERGIES: Pencillins. HOSPITAL COURSE: 71 year old male admitted with encephalopathy and liver failure. Patient had stop his heavy alcohol consumption about two weeks prior to admission when he was not feeling well. Did not seek care at that time, likely undergoing acute alcoholic hepatitis. Worsening confusion and jaundice at home with multisystem organ failure on admission. Treated agreesively at first and supportive care ensuing as non-recoverable state. Did require intubation for support but continued with progressive multisystem organ failure and hepatic coma. Family opted for comfort measures and patient peacefully at 12:02pm on 03/07/2017. DISPOSITION: . Thien Macias DO
[2017-03-07 12:40] VITALS: BP 72/32
== END 2017-03-07 12:02 | disposition expired | DRG 432 ==
LOC: ED 10:33 → ICU 13:20
PROVIDERS: ADMIT Internal Medicine Critical Care Medicine; ATTEND Internal Medicine Critical Care Medicine
PROC: 0BH17EZ Insertion of Endotracheal Airway into Trachea, Via Natural or Artificial Opening (ICD-10-PCS; principal; 2017-03-05)
PROC: 5A1945Z Respiratory Ventilation, 24-96 Consecutive Hours (ICD-10-PCS; 2017-03-05)
DX: K70.41 Alcoholic hepatic failure with coma (principal); K70.10 Alcoholic hepatitis without ascites; J96.01 Acute respiratory failure with hypoxia; K76.7 Hepatorenal syndrome; N17.0 Acute kidney failure with tubular necrosis; E44.0 Moderate protein-calorie malnutrition; D69.6 Thrombocytopenia, unspecified; E87.2 Acidosis; D68.4 Acquired coagulation factor deficiency; J98.11 Atelectasis; K70.30 Alcoholic cirrhosis of liver without ascites; F10.20 Alcohol dependence, uncomplicated; Y90.0 Blood alcohol level of less than 20 mg/100 ml; Z68.25 Body mass index [BMI] 25.0-25.9, adult; Z87.891 Personal history of nicotine dependence; Z88.0 Allergy status to penicillin; Z79.899 Other long term (current) drug therapy; Z66 Do not resuscitate
CPT/HCPCS: 36415; 36600; 70450; 71010; 74176; 80053; 80202; 80307; 80320; 80329; 81003; 82140; 82550; 82553; 82803; 83605; 83690; 83735; 83880; 84100; 84443; 84484; 85025; 85060; 85379; 85384; 85610; 85730; 86140; 87040; 87641; 93005; 94002; 94003; 94760; A9270-GY; G0480; J0696; J2270; J3010; J3370; J3411; J3430; J3480